=== PATIENT | female | born 1955 | race Caucasian/White ===

== ENCOUNTER → 2019-05-12 11:36 | Outpatient (CLI) | payer OTHER, SELFPAY ==
--- NOTE | 2019-05-12 | DI.RAD.S_ITS ---
PROCEDURE: XR CERVICAL SPINE 2V OR 3V INDICATIONS: m99.01, m43.6 TECHNIQUE: 3 view(s) of the cervical spine were acquired. COMPARISON: None. FINDINGS: Bones: No fractures or dislocations to the C7 level. The lateral masses of C1 appear intact on the odontoid view. No suspicious bony lesions. Straightening of the normal lordotic curvature. Multilevel degenerative endplate sclerosis and spurring. Diffuse facet arthropathy. Mild narrowing of the C5-C6 and C6-C7 disc spaces. Soft tissues: No prevertebral soft tissue swelling. IMPRESSION: Mid to lower cervical spondylosis and diffuse facet arthropathy. Dictated by: Chris Workman M.D. on 05/12/2019 at 16:04 Approved by: Chris Workman M.D. on 05/12/2019 at 16:05
== END ==
PROVIDERS: Visit Provider Chiropractor
DX: M43.6 Torticollis (principal); M47.812 Spondylosis without myelopathy or radiculopathy, cervical region; M99.01 Segmental and somatic dysfunction of cervical region
CPT/HCPCS: 72040